=== PATIENT | male | born 1950 | race Caucasian/White ===

== ENCOUNTER 2016-10-13 08:17 | Day surgery (SDC) | payer MEDICARE, BC ==
[~2016-10-13] VITALS: Ht 180.3 cm; Wt 93.2 kg
[2016-10-13 08:38] VITALS: BP 155/90; PULSE 76; RESP 20; TEMP 98; O2SAT 97
[2016-10-13] MEDS ORDERED: LISI-515 PO (09:04)
[2016-10-13] MEDS ORDERED: LIPI20TA PO (09:04)
[2016-10-13] MEDS ORDERED: TAMS5CAP PO (09:04)
[2016-10-13] MEDS ORDERED: JANU50TA8 PO (09:04)
[2016-10-13] MEDS ORDERED: SODIUM CHLORIDE 0.9% 1000 ML IV SCH (09:15)
[2016-10-13] MEDS ORDERED: LEVOFLOXACIN 500 MG PREMIX 100 ML - nephrostomy tube insertion or exchange IV SCH (09:15)
[2016-10-13 09:42] LABS: AUTOMATED NEUTROPHIL # 4.4 TH/MM3 (1.8-7.7); BASOPHIL # 0.1 TH/MM3 (0-0.2); BASOPHIL % 1.2 % (0.0-2.0); EOSINOPHIL # 0.1 TH/MM3 (0-0.4); EOSINOPHIL % 1.6 % (0.0-4.0); HEMATOCRIT 39.2 % (39.0-51.0); HEMO FLAGS DIFF FINAL; LYMPH % 14.2 % (9.0-44.0); LYMPHOCYTE # 0.9 TH/MM3 (1.0-4.8); MEAN CELL VOLUME 93.4 FL (80.0-100.0); MEAN CORPUSCULAR HEMOGLOBIN 31.6 PG (27.0-34.0); MEAN CORPUSCULAR HGB CONC 33.8 % (32.0-36.0); PLATELET COUNT 349 TH/MM3 (150-450); RED CELL DISTRIBUTION WIDTH 12.8 % (11.6-17.2)
[2016-10-13 10:00] LABS: APTT (PATIENT) 24.9 SEC (24.3-30.1); INTERNATIONAL NORMALIZED RATIO 0.9 RATIO; PROTHROMBIN TIME - PATIENT 10.3 SEC (9.8-11.6)
[2016-10-13 10:05] LABS: BICARBONATE 30.3 MEQ/L (21.0-32.0); POTASSIUM 4.2 MEQ/L (3.5-5.1)
[2016-10-13] MEDS ORDERED: MIDAZOLAM HCL 5 MG/5 ML VIAL ONE (10:34)
[2016-10-13] MEDS ORDERED: fentaNYL CITRATE 250 MCG/5 ML AMP ONE (10:34)
[2016-10-13 11:40] VITALS: BP 127/79; PULSE 72; RESP 18; TEMP 98.5; O2SAT 92
[2016-10-13 11:55] VITALS: BP 128/93; PULSE 69; RESP 18; O2SAT 93
--- NOTE | 2016-10-13 12:07 | PD.RAD ---
Post Procedure Progress Note Pre Procedure Diagnosis: (1) Hydronephrosis of right kidney (2) Right ureteral calculus Post Procedure Diagnosis: (1) Hydronephrosis of right kidney (2) Right ureteral calculus Procedure Date: Oct 13, 2016 Supervising Radiologist: Ethan Christine Proceduralist/Assist: Edison Pete RT(R), Darline Barksdale RT(R)(CV) Anesthesia: Local, Analgesia, Conscious Sedation Plan of Activity Patient to Unit: ROPU Patient Condition: Good See PACS Report for procedural detail/treatment Drainage Procedure Procedure 1 Imaging Guidance: Fluoroscopy Side: Right Procedure Type: Nephrostomy Procedure: Placement Italian: 8 Drainage: [place] drainage Fluid Description: Yellow, Red Ethan Christine MD Oct 13, 2016 12:07
[2016-10-13 12:25] VITALS: BP 132/85; PULSE 64; RESP 18; O2SAT 93
[2016-10-13 12:55] VITALS: BP 135/85; PULSE 69; RESP 16; O2SAT 95
--- NOTE | 2016-10-14 16:23 | RADRPT ---
EXAM DATE/TIME: 10/13/2016 10:53 [facility] COMPARISON: No previous studies available for comparison. INDICATIONS : Right kidney stones and hydronephrosis. MEDICAL HISTORY : 1. Bilateral renal calculii 2. BPH SURGICAL HISTORY : 1. cysto ENCOUNTER: Initial ACUITY: 1 week PAIN SCORE: 0/10 FLUORO TIME: 3.5 minutes SEDATION TIME: 40 minutes MEDICATION(S): 1.) 3.5 mg midazolam (Versed) IV 2.) 175 mcg fentanyl (Sublimaze) IV Prophylactic antibiotics were administered with appropriate pre-procedure timing. DEVICE(S): 1.) 8 Estonian nephrostomy catheter PROCEDURE : 1. Ultrasound-guided puncture of the kidney. 2. Antegrade percutaneous pyelogram. 3. Percutaneous nephrostomy placement. 4. Conscious sedation with continuous EKG and oximetry monitoring. The risks, benefits and alternatives to the procedure were explained and verbal and written consent w as obtained. The site was prepped in sterile fashion. Full sterile technique was used, including ca p, mask, sterile gloves and gown and a large sterile sheet. Hand hygiene and 2% chlorhexidine and/or betadine/alcohol prep was utilized per protocol for cutaneous antisepsis. The skin and subcutaneous tissues were infiltrated with local anesthetic solution. With ultrasound and fluoroscopic guidance the selected kidney was punctured with a 22 gauge spinal ne edle and CO2 injected to delineate the posterior calyceal system. A mid pole calyx was selected and p unctured with a [place] blunt needle. Serial dilatation was performed and a prescribed nephrostomy t ube was placed within the renal pelvis and sutured in place. Conscious sedation was performed with the prescribed dosages and duration as above. The patient tole rated the procedure well and there were no complications. EKG and oximetry remained stable throughou t the procedure. The patient was sent to post anesthesia recovery in stable condition. CONCLUSION: Uncomplicated nephrostomy tube placement as above. Patient will return in appro ximately 48 hours for attempted conversion to percutaneous nephroureteral tube. Ethan Christine MD on October 14, 2016 at 16:19 Board Certified Radiologist. This report was verified electronically.
== END 2016-10-13 15:10 | disposition home or self-care (01) ==
LOC: HROP 08:17 → HRIP 08:22 → HROP 15:10
PROVIDERS: ATTEND Urology
DX: N13.30 Unspecified hydronephrosis (principal); N20.1 Calculus of ureter
CPT/HCPCS: 50432; 80048; 85025; 85610; 85730; 99152; 99153; C1729; C1769; C1887; J1956; J2250; J3010; J7030

== ENCOUNTER 2016-10-15 08:39 | Day surgery (SDC) | payer MEDICARE, BC ==
[~2016-10-15] VITALS: Ht 180.3 cm; Wt 93.2 kg
[~2016-10-15 08:39] MED LIST: JANU50TA8 PO; LIPI20TA PO; LISI-515 PO; TAMS5CAP PO
[2016-10-15 08:57] VITALS: BP 145/84; PULSE 77; RESP 20; TEMP 97.7; O2SAT 98
[2016-10-15] MEDS ORDERED: LEVOFLOXACIN 500 MG PREMIX 100 ML - nephrostomy tube insertion or exchange IV SCH (09:15)
[2016-10-15] MEDS ORDERED: SODIUM CHLORIDE 0.9% 1000 ML IV SCH (09:15)
[2016-10-15] MEDS ORDERED: MIDAZOLAM HCL 5 MG/5 ML VIAL ONE (10:01)
[2016-10-15] MEDS ORDERED: fentaNYL CITRATE 250 MCG/5 ML AMP ONE (10:01)
[2016-10-15 11:00] VITALS: BP 136/80; PULSE 73; RESP 18; TEMP 98.3; O2SAT 93
[2016-10-15] MEDS ORDERED: IOHEXOL 350 MG/ML 50 ML BTL (for RAD DIAG) ONE (11:13)
[2016-10-15 11:15] VITALS: BP 128/77; PULSE 68; RESP 16; O2SAT 95
--- NOTE | 2016-10-15 11:16 | PD.RAD ---
Post Procedure Progress Note Pre Procedure Diagnosis: (1) Hydronephrosis of right kidney (2) Right ureteral calculus Post Procedure Diagnosis: (1) Hydronephrosis of right kidney (2) Right ureteral calculus Procedure Date: Oct 15, 2016 Supervising Radiologist: Ethan Christine Proceduralist/Assist: Darline Barksdale, RT(R)(CV), Margie Nuñez RT(R)() Anesthesia: Local, Analgesia, Conscious Sedation Plan of Activity Patient to Unit: ROPU Patient Condition: Good See PACS Report for procedural detail/treatment Drainage Procedure Procedure 1 Imaging Guidance: Fluoroscopy Procedure Type: Nephrostomy, Ureteral Stent Procedure: Conversion (Pt had nephrostomy placed 2 days ago) [place]ish: 8 PICC Line Length (cm): 26 Fluid Description: Yellow, Red Ethan Christine MD Oct 15, 2016 11:16
[2016-10-15 11:45] VITALS: BP 136/80; PULSE 63; RESP 18; O2SAT 95
[2016-10-15 12:15] VITALS: BP 140/76; PULSE 67; RESP 16; O2SAT 95
--- NOTE | 2016-10-17 09:31 | RADRPT ---
EXAM DATE/TIME: 10/15/2016 10:23 [facility] COMPARISON: No previous studies available for comparison. INDICATIONS : Patient is in need of conversion of exisiting right nephrostomy tube to right nephroureteral catheter . MEDICAL HISTORY : History of bilateral renal calculi, BPH, bilateral cataracts, DM. SURGICAL HISTORY : History of cystoscopy, nephrostomy tube, lithotripsy, bilateral testicular surgery, multiple orthoped ic surgery, eye surgery. ENCOUNTER: Subsequent ACUITY: 1 week PAIN SCORE: 0/10 FLUORO TIME: 5.1 minutes SEDATION TIME: 30 minutes CONTRAST: 20 cc Omnipaque (iohexol) 350 MEDICATION(S): 1.) 3 mg midazolam (Versed) IV 2.) 150 mcg fentanyl (Sublimaze) IV Prophylactic antibiotics were administered with appropriate pre-procedure timing. DEVICE(S): 1.) 8.3Fr/26cm nephroureteral stent BS Expel PROCEDURE : 1. Ultrasound-guided puncture of the kidney. 2. Antegrade percutaneous pyelogram. 3. Percutaneous nephrostomy placement. 4. Conscious sedation with continuous EKG and oximetry monitoring. The risks, benefits and alternatives to the procedure were explained and verbal and written consent w as obtained. The site was prepped in sterile fashion. Full sterile technique was used, including ca p, mask, sterile gloves and gown and a large sterile sheet. Hand hygiene and 2% chlorhexidine and/or betadine/alcohol prep was utilized per protocol for cutaneous antisepsis. The skin and subcutaneous tissues were infiltrated with local anesthetic solution. Patient has an existing nephrostomy tube placed 2 days earlier. Hyperion Administrator image with contrast injection s hows the tube to a pullback into the lower pole calyx of the right kidney. A wire was advanced throug h the tube and the wire and catheter were manipulated past the proximal ureteric stones into the urin yogi bladder. Over the wire, the tract was serially dilated to accommodate the nephroureteral tube lis javier above.Conscious sedation was performed with the prescribed dosages and duration as above. The pa tient tolerated the procedure well and there were no complications. EKG and oximetry remained stable throughout the procedure. The patient was sent to post anesthesia recovery in stable condition. CONCLUSION: 1. Uncomplicated conversion of the existing nephrostomy tube to a nephroureteral tube as above. 2. Patient has a series of stones in the proximal right ureter which appear to be obstructive. Ethan Christine MD on October 17, 2016 at 9:26 Board Certified Radiologist. This report was verified electronically.
== END 2016-10-15 13:15 | disposition home or self-care (01) ==
LOC: HROP 08:39 → HRIP 08:40 → HROP 13:15
PROVIDERS: ATTEND Urology
DX: N13.2 Hydronephrosis with renal and ureteral calculous obstruction (principal); E11.9 Type 2 diabetes mellitus without complications; N40.0 Benign prostatic hyperplasia without lower urinary tract symptoms
CPT/HCPCS: 50434; 99152; 99153; C1769; C1877; C1887; J1956; J2250; J3010; J7030; Q9967; 50432

== ENCOUNTER 2016-10-20 07:12 | Day surgery (SDC) | payer MEDICARE, BC ==
[~2016-10-20] VITALS: Ht 180.3 cm; Wt 93.0 kg
[2016-10-20 07:27] VITALS: BP 143/97; PULSE 79; RESP 20; TEMP 97.8; O2SAT 96
[2016-10-20] MEDS ORDERED: LEVOFLOXACIN 500 MG PREMIX INJ 100 ML IV SCH (07:45)
== END 2016-10-20 10:00 | disposition home or self-care (01) ==
LOC: HROP 07:12 → HRIP 07:17 → HROP 10:00
PROVIDERS: ATTEND Urology
DX: N13.30 Unspecified hydronephrosis (principal)

== ENCOUNTER 2018-06-16 05:36 | Inpatient (IN) ==
[2018-06-16] MEDS ORDERED: Dexamethasone Inj 20 MG/5 ML Vial IV.PUSH SCH (06:09)
[2018-06-16] MEDS ORDERED: Metoprolol Tartrate 25 MG Tablet PO ONE (06:15)
[2018-06-16] MEDS ORDERED: Chlorhexidine Gluconate 2% 1 Pack (2 Cloths) TOPICAL ONE (06:15)
[2018-06-16] MEDS ORDERED: Sodium Chlor 0.9% Inj 73.07 ML, Ropivacaine 0.5% PF Inj 24.63 ML, Ketorolac Inj 30 MG, ... P-ARTICULR SCH ×5 (06:15)
[2018-06-16] MEDS ORDERED: Chlorhexidine 4% Topical 120 APPLIC/120 ML Bottle TOPICAL SCH (06:15)
[2018-06-16] MEDS ORDERED: Sodium Chlor 0.9% Inj 500 ML IV.CONT ONE (06:15)
[2018-06-16] MEDS ORDERED: Sodium Chloride 0.9% 2 ML Flush PRN IV.FLUSH (06:54)
[2018-06-16] MEDS ORDERED: TRANEXAMIC ACID IV.SIG SCH ×2 (07:00→11:00)
[2018-06-16] MEDS ORDERED: SODIUM CHLOR 0.9% IV.SIG SCH ×2 (07:00→11:00)
[2018-06-16] MEDS ORDERED: Vancomycin Inj 1,000 MG in Sodium Chlor 0.9% Inj 250 ML IV.SIG SCH (07:00)
[2018-06-16] MEDS ORDERED: ceFAZolin 2 GM Premix Inj 2 GM/50 ML PIGGYBACK IV.SIG SCH (07:00)
[2018-06-16] MEDS ORDERED: Bupivacaine Liposomal PF 1.3% Inj 20 ML Vial ONE (07:20)
[2018-06-16] MEDS ORDERED: Bupivacaine PF 0.25% Inj 30 ML Vial ONE (07:22)
[2018-06-16] MEDS ORDERED: Lidocaine PF 1% Inj 5 ML Syringe OTHER ONE (08:06)
[2018-06-16] MEDS ORDERED: HYDROmorphone PF Inj 2 MG/ML Vial ONE (08:45)
[2018-06-16] MEDS ORDERED: fentaNYL Citrate Inj 100 MCG/2 ML Ampul ONE (08:45)
[2018-06-16] MEDS ORDERED: Sodium Chloride 0.9% 2 ML Flush BID IV.FLUSH SCH (09:00)
[2018-06-16] MEDS ORDERED: Morphine Inj 4 MG/ML Vial IV.PUSH PRN (10:03)
[2018-06-16] MEDS ORDERED: Bisacodyl 10 MG Supp RECTAL PRN (10:03)
[2018-06-16] MEDS ORDERED: Post-op Orders (for Pharmacy) OTHER STA (10:03)
[2018-06-16] MEDS ORDERED: Aluminum/Magnesium/Simethacone Susp 30 ML UDC PO PRN (10:03)
--- NOTE | 2018-06-16 10:05 | P.OP ---
- Preoperative Diagnosis (1) Osteoarthritis of right knee - Postoperative Diagnosis (1) Osteoarthritis of right knee Date of procedure: 06/16/18 Procedure: Right total knee arthroplasty Surgeon: Sandeep Ortiz MD Clip Loading Machine Feeder: REBECCA Jurado The surgical procedure was assisted by my Advanced Registered Nurse Practitioner. My INSTALLATION MANAGER presence was necessary throughout this case for the manipulation and positioning of the surgical extremity. My INSTALLATION MANAGER was assisting me throughout the duration of this procedure. The skill set of an Advance Registered Nurse Practitioner was medically necessary to complete this procedure. During the surgical case, the seal delivery vehicle team technician was working at the back table and the Advance Registered Nurse Practitioner was directly assisting me. Operation and Findings: IMPLANTS: DePuy Attune: Patella: size 38. Femur, posterior stabilized size 8. Tibia, rotating platform size 7. Tibial insert, rotating platform, posterior stabilized size 7 mm thickness. ESTIMATED BLOOD LOSS: 100 cc TOURNIQUET TIME: 48 minutes at 250 mmHg pressure. JUSTIFICATION FOR PROCEDURE: The patient has end-stage osteoarthritis to the knee. There is an attached conservative measures pathway form in the chart that describes the nonoperative measures that were undertaken prior to consideration of surgical management. The patient understood the risks and benefits of surgical management. See my office notes for further details PROCEDURE: The patient was brought back to the operative theatre. Adequate anesthesia was obtained. The patient received intravenous vancomycin and Ancef. The lower extremity was prepped and draped in the usual sterile fashion.The leg was exsanguinated, the tourniquet was raised. A standard anterior incision was performed followed by medial parapatellar arthrotomy was performed. End-stage arthritis was identified. Osteotomy of the patella was performed. We drilled holes for the patella. We trialed the patella component. We placed an intramedullary guide into the distal femur. We ultimately resected 13 mm off of the distal femur in 5 degrees of valgus. The remnants of the ACL and PCL were resected. Osteotomy of the proximal tibia was performed, resecting 5 mm off of the medial side. This was done with 3 degrees of posterior slope using an extramedullary guide. The distal end of the guide was placed in the mid aspect of the ankle. The femur was sized, and four chamfer cuts were completed in 3 of external rotation. We then cut the central box in the distal femur to replace the PCL. We resected the remnants of the menisci and removed osteophytes off of the femur and tibia. We then trialed the knee. We punched the tibia for the keel, and then used standard technique to cement in components. Excess cement was removed. We trialed the knee again and the final polyethylene thickness was chosen to provide extension to 0 degrees, and flexion of 140 degrees to gravity. The ligaments were appropriately balanced. Lateral release was necessary to obtain excellent patellofemoral tracking. The tourniquet was released and adequate hemostasis was obtained. An intra- articular injection of a ropivacaine cocktail was injected. The posterior knee was inspected for excess cement, which was removed. The final polyethylene was put into position after thorough irrigation. We then closed deep fascia with a #2 Stratafix followed by skin with 2-0 Vicryl followed by Dermabond dressing. Postop plan is to weight-bear as tolerated. DVT prophylaxis will be performed with SCDs, ELIGIO gibbs, early mobilization, and Lovenox followed by aspirin.
[2018-06-16] MEDS: Sod Chloride 0.9% Inj 1,000 ML IV.CONT SCH (11:15)
--- NOTE | 2018-06-16 11:54 | XR ---
EXAM DATE: 06/16/2018 10:03 AM EDT AGE/SEX: 68 years / Male INDICATIONS: Post-op Right knee. CLINICAL DATA: This is the patient's initial encounter. Patient reports that signs and symptoms have been present for 1 day and indicates a pain score of 0/10. MEDICAL/SURGICAL HISTORY: None. None. COMPARISON: POI, XR KNEE COMPLETE, RIGHT, 11/18/2016. . FINDINGS: Two views of the knee reveal a total knee prosthesis in good position. No fracture or dislocation is observed. Soft tissues are unremarkable. No joint effusion is seen. CONCLUSION: Total knee prosthesis in good position. Electronically signed by: Festus Combs MD 06/16/2018 11:53 AM EDT
--- NOTE | 2018-06-16 15:27 | P.DCO ---
- Physical Therapy Physical Therapy: Gait training, Transfer training, bed to chair Knee: Total knee Right Lower Extremity Weight Bearing: Weight bearing as tolerated Right Lower Extremity Range of Motion: Active ROM - Nursing Nursing: Farhad rivera Dressing changes: Do not change dressing Additional instructions: First dressing change in the office - Certification Need for Home Health services: I have seen patient Familia Quintana on 06/16/18. My clinical findings support the need for the requested home health care services because: Need for Home Health Services: Limited ability to care for self, High risk of falls Homebound Certification: I certify that my clinical findings support that this patient is homebound because: Homebound Certification: Post-op weakness, Unsteady gait/balance
[2018-06-16] MEDS: Multivitamin/Minerals Therapeutic Tablet PO SCH (20:58)
[2018-06-16] MEDS: Propranolol 10 MG Tablet PO SCH (20:58)
[2018-06-16] MEDS ORDERED: Zolpidem Tartrate 5 MG Tablet PO PRN (21:00)
[2018-06-16] MEDS: Senna/Docusate Sodium 8.6/50 MG Tablet PO SCH (21:01)
[2018-06-17] MEDS: Sod Chloride 0.9% Inj 1,000 ML IV.CONT SCH ×2 (05:26→11:30)
[2018-06-17 07:07] LABS: Hematocrit 36.7 % (39.0-51.0); Hemoglobin 12.2 gm/dL (13.0-17.0)
--- NOTE | 2018-06-17 07:26 | P.PNOP ---
Subjective Interval history: Patient is resting comfortably in bed in no acute distress. The patient has been ambulatory and is requesting discharge home with home health today. The patient reports mild discomfort to the right knee. Physical Exam Vital signs: Vital Signs 06/16/18 07:44 06/16/18 07:56 06/16/18 07:57 Temperature Pulse Rate 77 75 75 Respiratory Rate 19 15 Blood Pressure 100/60 114/62 Pulse Oximetry 98 98 97 06/16/18 10:28 06/16/18 10:45 06/16/18 11:00 Temperature 97.6 F Pulse Rate 78 82 87 Respiratory Rate 10 L 16 18 Blood Pressure 125/68 119/60 111/62 Pulse Oximetry 95 94 L 94 L 06/16/18 11:15 06/16/18 11:30 06/16/18 12:00 Temperature 97.8 F Pulse Rate 82 80 83 Respiratory Rate 12 15 16 Blood Pressure 130/73 117/68 121/80 Pulse Oximetry 96 95 96 06/16/18 14:45 06/16/18 16:00 06/16/18 20:00 Temperature 97.7 F 98.1 F Pulse Rate 80 84 88 Respiratory Rate 16 20 Blood Pressure 118/73 124/72 96/52 L Pulse Oximetry 95 96 92 L 06/17/18 00:00 06/17/18 01:00 06/17/18 04:00 Temperature 98.0 F 98.2 F Pulse Rate 87 87 Respiratory Rate 18 17 17 Blood Pressure 113/55 L 136/64 Pulse Oximetry 97 95 Intake & Output 06/16/18 06/17/18 06/17/18 18:59 06:59 18:59 Intake Total 2289.17 / 2289.17 1200 / 1200 Output Total 150 / 150 Balance 2139.17 / 2139.17 1200 / 1200 Weight 91.7 kg Intake: IV 209.17 / 209.17 1200 / 1200 NS Inj 1,000 ML @ 80 mls/hr IV. 1000 / 1000 CONT .[id number] FERNANDO Rx#:[id number] Cyklokapron Inj 917 MG In NS 109.17 / 109.17 Inj 100 ML @ 200 mls/hr IV.SIG ONCE FERNANDO Rx#:[id number] Ancef Inj 1,000 MG In NS Inj 100 / 100 200 / 200 100 ML @ 200 mls/hr IV.SIG Q6H FERNANDO Rx#:[id number] Oral 1080 / 1080 Anesthesia Amount 1000 / 1000 Output: Estimated Blood Loss 150 / 150 Other: # Voids 2 6 Date of Last Bowel Movement 06/16/18 06/16/18 Narrative: The patient's dressing is clean, dry, and intact. EHL/TA/G are intact. 2+ pedal pulse. The patient's calf is soft and nontender. Sensation is intact to light touch distally. Results - Labs CBC & Chem 7: 06/17/18 06:00 Laboratory Results - last 24 hr 06/17/18 06:00 Hgb 12.2 L Hct 36.7 L - Imaging Impressions Knee X-Ray 06/16/18 10:03 CONCLUSION: Total knee prosthesis in good position. - Procedures Right total knee arthroplasty Assessment and Plan - Problem List (1) Status post total knee replacement, right Code(s): Z96.651 - Presence of right artificial knee joint Status: Acute (2) Osteoarthritis of right knee Code(s): M17.11 - Unilateral primary osteoarthritis, right knee Status: Acute - Assessment and Plan POD #1: [Right] total knee arthroplasty 1. Weightbearing as tolerated on [right] lower extremity. 2. Lovenox followed by aspirin for DVT prophylaxis. 3. Ice as needed for swelling. 4. Stable per ortho for discharge to home health today following class. 5. The patient will follow up with Dr. Ortiz and/or REBECCA Mack as previously scheduled.
[2018-06-17] MEDS ORDERED: Dexamethasone Inj 20 MG/5 ML Vial IV.PUSH ONE (08:00)
[2018-06-17 08:18] VITALS: O2SAT 96
[2018-06-17] MEDS: Multivitamin/Minerals Therapeutic Tablet PO SCH (08:38)
[2018-06-17] MEDS: Propranolol 10 MG Tablet PO SCH (08:38)
[2018-06-17] MEDS: Senna/Docusate Sodium 8.6/50 MG Tablet PO SCH (08:47)
[2018-06-17] MEDS ORDERED: Lisinopril 20 MG Tablet PO SCH (09:00)
[2018-06-17] MEDS ORDERED: Enoxaparin Inj 40 MG/0.4 ML Syringe SQ SCH (09:30)
[2018-06-17 12:29] VITALS: BP 126/61; PULSE 91; RESP 18; TEMP 98.3
--- NOTE | 2018-06-18 09:55 | P.DS ---
Date of admission: 06/16/18 05:36 Primary care physician: Jason Robles DO Attending physician on discharge: Sandeep Ortiz Anticipated date of discharge: 06/17/18 Brief History from admission: The patient was admitted to the hospital for severe osteoarthritis of the right knee to have a right total knee arthroplasty. DS: Diagnosis - Discharge Diagnosis (1) Status post total knee replacement, right Status: Acute (2) Osteoarthritis of right knee Status: Acute DS: Summary Hospital Course: The patient was admitted to the hospital for severe osteoarthritis of the [right ] knee to have a [right] total knee arthroplasty. The patient's surgery went well with no complication. The patient is on a diabetic diet. The patient's DVT prophylaxis includes use of [Lovenox followed by aspirin]. The patient is weightbearing as tolerated. The patient was discharged [home with home health] and will follow up in the office with Dr. Ortiz and/or REBECCA Mack as previously scheduled. - Time Spent with Patient Total time spent providing and/or coordinating discharge services: Greater than 30 minutes - Quality: VTE Deep Vein Thrombosis/Pulmonary Embolism Present on Admission: No Exam Vital signs: Vital Signs 06/17/18 12:00 Temperature 98.3 F Pulse Rate 91 H Respiratory Rate 18 Blood Pressure 126/61 Pulse Oximetry 96 Intake & Output 06/17/18 06/18/18 06/18/18 18:59 06:59 18:59 Other: Date of Last Bowel Movement 06/16/18 Narrative: The patient's dressing is clean, dry, and intact. EHL/TA/G are intact. 2+ pedal pulse. The patient's calf is soft and nontender. Sensation is intact to light touch distally. Results Procedures completed during hospitalization: Right total knee arthroplasty - Impressions ITS Impressions Knee X-Ray 06/16/18 10:03 CONCLUSION: Total knee prosthesis in good position. Discharge Plan - Discharge Disposition Patient Disposition: Disch W/Home Health Service - Discharge Condition Condition: Stable - Discharge Order Discharge Orders: Discharge Order (Routine); Ordered 06/16/18 Ordered By: Antione Morales - Discharge Details Anticipated Discharge Date: 06/17/18 - Physicians Team Primary Care Provider: Jason Robles Attending Provider: Sandeep Ortiz - Rxs /Orders / Referrals /Forms Prescriptions: Continue atorvastatin [Lipitor] 20 mg Tablet 20 mg PO HS lisinopril 20 mg Tablet 20 mg PO DAILY metformin 500 mg Tablet 500 mg PO HS propranolol 10 mg Tablet 10 mg PO BID tamsulosin 0.4 mg Capsule,Extended Release 24hr 0.4 mg PO DAILY Ambulatory Orders / Order Sets / DME: Adjustable Commode 3-in-1 (1 each) (Routine) Location: Determined by Patient Ordered By: Antione Morales CPM - Continuous Passive Motion Machine (1 each) (Routine) Location: Determined by Patient Ordered By: Antione Morales Walker With Front Wheels (1 each) (Routine) Location: Determined by Patient Ordered By: Antione Morales Referrals: Sandeep Ortiz MD [Physician] - See Instructions (The patient should follow with Dr. Ortiz or Ethan Morales APRN as previously scheduled) Jason Robles DO [Primary Care Provider] - See Instructions - Discharge Instructions Patient Printed Instructions: Knee Replacement (DC)
== END 2018-06-17 14:11 | disposition home health service (06) ==
LOC: HSDI 05:36 → N06 15:11
PROVIDERS: ADMIT Orthopaedic Surgery; ATTEND Orthopaedic Surgery